=== PATIENT | male | born 1945 | race Caucasian/White ===

== ENCOUNTER 2017-11-02 13:58 | Emergency (ER) | payer MEDICARE, MEDICAID ==
[~2017-11-02] VITALS: Ht 170.2 cm; Wt 61.4 kg
[2017-11-02 14:02] VITALS: BP 128/65; PULSE 92; RESP 16; TEMP 97.4; O2SAT 97
--- NOTE | 2017-11-02 15:30 | PD ---
HPI Chief Complaint: Complaint Time Seen by Provider: 14:29 Travel History International Travel<30 days: No Contact w/Intl Traveler<30days: No Traveled to known affect area: No History of Present Illness HPI 71-year-old male complaining of pain swelling scrotum. Patient states that he had hernia repair on the left side about 5 years ago in [place]. Patient states he has increasing pain and swelling scrotum for the past 2 months. Patient denies any fever chills. Patient denies any nausea vomiting diarrhea. Patient denies any dysuria or frequency. Patient states the pain is mild cramping pain localized scrotum. Patient denies any pain radiation. On a scale of 1-10 the pain is a 3. PFSH Past Medical History Cancer: Yes Diminished Hearing: No GERD: Yes Tetanus Vaccination: Unknown Influenza Vaccination: No ?: Not Past Surgical History Abdominal Surgery: Yes (colon cancer, hernia repair) Social History Alcohol Use: Yes (daily) Tobacco Use: No Substance Use: No Allergies-Medications (Allergen,Severity, Reaction): Coded Allergies: No Known Allergies (Unverified , 11/02/17) Reported Meds & Prescriptions Reported Meds & Active Scripts Active No Active Prescriptions or Reported Medications Review of Systems General / Constitutional: No: Fever Eyes: No: Visual changes HENT: No: Headaches Cardiovascular: No: Chest Pain or Discomfort Respiratory: No: Shortness of Breath Gastrointestinal: No: Abdominal Pain Genitourinary: No: Dysuria Musculoskeletal: No: Pain Skin: No Rash Neurologic: No: Weakness Psychiatric: No: Depression Endocrine: No: Polydipsia Hematologic/Lymphatic: No: Easy Bruising Physical Exam Narrative GENERAL: Well-nourished, well-developed patient. SKIN: Focused skin assessment warm/dry. HEAD: Normocephalic. EYES: No scleral icterus. No injection or drainage. NECK: Supple, trachea midline. No JVD or lymphadenopathy. CARDIOVASCULAR: Regular rate and rhythm without murmurs, gallops, or rubs. RESPIRATORY: Breath sounds equal bilaterally. No accessory muscle use. GASTROINTESTINAL: Abdomen soft, non-tender, nondistended. MUSCULOSKELETAL: No cyanosis, or edema. BACK: Nontender without obvious deformity. No CVA tenderness. exam: Patient has enlarged scrotum bilaterally. Minimal tenderness on palpation. No redness no heat noted. The mass can be reducible. Data Data Last Documented VS Vital Signs Date Time Temp Pulse Resp B/P (MAP) Pulse Ox O2 Delivery O2 Flow Rate FiO2 11/02/17 14:02 97.4 92 16 128/65 (86) 97 Orders Orders Us Testicles W Doppler (11/02/17 14:36) MDM Medical Decision Making Medical Screen Exam Complete: Yes Emergency Medical Condition: Yes Interpretation(s) Scrotum ultrasound shows bilateral hydroceles. Differential Diagnosis Differential diagnosis including inguinal hernia, hydrocele, testicular mass, torsion. Narrative Course 71-year-old male with scrotal mass, soft, not tenderness and palpation. Typical of inguinal hernia. Diagnosis Primary Impression: Bilateral hydrocele Patient Instructions: General Instructions Additional Instructions: Advil Tylenol for pain. Follow up with urologist. Scripts No Active Prescriptions or Reported Meds Disposition: 01 DISCHARGE HOME Condition: Stable Yoel Saleh MD Nov 02, 2017 15:30
--- NOTE | 2017-11-02 15:51 | RADRPT ---
EXAM DATE/TIME: 11/02/2017 15:22 [facility] COMPARISON: No previous studies available for comparison. INDICATIONS : Testicle pain and swelling for 2 months. MEDICAL HISTORY : Gastroesophageal reflux disease. Colon cancer. SURGICAL HISTORY : Hernia repair. ENCOUNTER: Initial ACUITY: 2 months PAIN SCORE: 2/10 LOCATION: Bilateral scrotum. MEASUREMENTS: RIGHT TESTICLE: 4.2 x 2.0 x 2.3cm LEFT TESTICLE: 4.6 x 2.5 x 2.1 cm FINDINGS: RIGHT TESTICLE: Homogeneous echotexture without intra or extratesticular mass. Blood flow is symmetric and within no rmal limits. No varicocele. Small hydrocele with septations. Epididymis is within normal limits. LEFT TESTICLE: Homogeneous echotexture without intra or extratesticular mass. Blood flow is symmetric and within no rmal limits. No varicocele. Large simple appearing hydrocele. Small cyst in the epididymal head SCROTUM: Bilateral hydroceles, as above. Otherwise, unremarkable. CONCLUSION: 1. Normal symmetric sonographic appearance of the testicles with intact vascularity at this time. 2. Large simple left hydrocele. 3. Small slightly complex right hydrocele containing septations. 4. Small left epididymal cyst. Collin Watson MD on November 02, 2017 at 15:46 Board Certified Radiologist. This report was verified electronically.
== END 2017-11-02 16:10 | disposition home or self-care (01) ==
LOC: PHED 13:58
DX: N43.3 Hydrocele, unspecified (principal); Z85.038 Personal history of other malignant neoplasm of large intestine
CPT/HCPCS: 76870; 93975; 99284

== ENCOUNTER 2018-02-12 09:22 | Observation (INO) | payer MEDICARE, MEDICAID ==
[~2018-02-12] VITALS: Ht 170.2 cm; Wt 60.4 kg
[2018-02-12] VITALS (11 sets, daily range): BP systolic 135–150; BP diastolic 80–84; PULSE 75–89; RESP 16–20; TEMP 97–98.1; O2SAT 94–98
--- NOTE | 2018-02-12 09:53 | RADRPT ---
EXAM DATE/TIME: 02/12/2018 09:37 [facility] COMPARISON: No previous studies available for comparison. INDICATIONS : Chest pain for 2 days MEDICAL HISTORY : None. SURGICAL HISTORY : None. ENCOUNTER: Initial ACUITY: 2 days PAIN SCORE: 8/10 LOCATION: Bilateral chest FINDINGS: Portable AP view of the chest demonstrates a normal-sized cardiac silhouette. No effusion, consolidat ion, or pneumothorax is visualized. The bones and soft tissues demonstrate no acute abnormality. EKG lines overlie the patient. CONCLUSION: No acute cardiopulmonary abnormality is identified. Brad Pastrana MD on February 12, 2018 at 9:50 Board Certified Radiologist. This report was verified electronically.
[2018-02-12 09:59] LABS: AUTOMATED NEUTROPHIL # 2.5 TH/MM3 (1.8-7.7); BASOPHIL % 0.7 % (0.0-2.0); EOSINOPHIL # 0.1 TH/MM3 (0-0.4); EOSINOPHIL % 2.5 % (0.0-4.0); HEMATOCRIT 39.5 % (39.0-51.0); HEMOGLOBIN 13.2 GM/DL (13.0-17.0); LYMPH % 44.1 % (9.0-44.0); LYMPHOCYTE # 2.6 TH/MM3 (1.0-4.8); MEAN CELL VOLUME 101.8 FL (80.0-100.0); MEAN CORPUSCULAR HGB CONC 33.4 % (32.0-36.0); MEAN PLATELET VOLUME 8.4 FL (7.0-11.0); MONO % 10.3 % (0.0-8.0); MONOCYTE # 0.6 TH/MM3 (0-0.9); NEUT % 42.4 % (16.0-70.0); PLATELET COUNT 114 TH/MM3 (150-450); RED BLOOD COUNT 3.88 MIL/MM3 (4.50-5.90); RED CELL DISTRIBUTION WIDTH 12.9 % (11.6-17.2); WHITE BLOOD COUNT 5.8 TH/MM3 (4.0-11.0)
[2018-02-12 10:00] LABS: CHLORIDE 105 MEQ/L (98-107); SODIUM (NA) 139 MEQ/L (136-145)
[2018-02-12 10:03] LABS: CALCIUM 8.5 MG/DL (8.5-10.1); GLUCOSE,RANDOM 178 MG/DL (74-106)
[2018-02-12 10:04] LABS: BICARBONATE 27.5 MEQ/L (21.0-32.0); BLOOD UREA NITROGEN 11 MG/DL (7-18)
[2018-02-12 10:07] LABS: CREATININE 0.82 MG/DL (0.60-1.30); GLOMERULAR FILTRATION RATE 92 ML/MIN (>89)
[2018-02-12 10:11] LABS: TROPONIN I LESS THAN 0.02 NG/ML (0.02-0.05)
[2018-02-12 10:16] LABS: ALBUMIN 3.9 GM/DL (3.4-5.0)
[2018-02-12 10:19] LABS: DIRECT BILIRUBIN ADULT 0.2 MG/DL (0.0-0.2)
[2018-02-12 10:21] LABS: INDIRECT BILIRUBIN 0.5 MG/DL (0.0-0.8); TOTAL BILIRUBIN ADULT 0.7 MG/DL (0.2-1.0); TOTAL PROTEIN 8.2 GM/DL (6.4-8.2)
--- NOTE | 2018-02-12 10:32 | PD ---
HPI Chief Complaint: Chest Pain Time Seen by Provider: 09:35 Travel History International Travel<30 days: No Contact w/Intl Traveler<30days: No Traveled to known affect area: No History of Present Illness HPI 72-year-old male arrives with a complaint of chest pain. He had a fall 2 weeks prior. He had mild pain however became much worse yesterday and even worse this morning. There is a pleuritic component to the pain. No fever or cough. There is no dyspnea on exertion. Patient has no history diabetes hypertension or hyperlipidemia. No history smoking. The patient does report drinking alcohol daily. PFSH Past Medical History Cancer: Yes (colon) High Cholesterol: Yes Diminished Hearing: No GERD: Yes Influenza Vaccination: No ?: Not Past Surgical History Abdominal Surgery: Yes (colon resection, hernia repair) Social History Alcohol Use: Yes (daily) Tobacco Use: No Substance Use: No Allergies-Medications (Allergen,Severity, Reaction): Coded Allergies: No Known Allergies (Unverified , 11/02/17) Reported Meds & Prescriptions Reported Meds & Active Scripts Active No Active Prescriptions or Reported Medications Review of Systems Except as stated in HPI: all other systems reviewed are Neg General / Constitutional: No: Fever Physical Exam Narrative GENERAL: 72-year-old male well-nourished well-developed no acute distress Vital Signs Date Time Temp Pulse Resp B/P (MAP) Pulse Ox O2 Delivery O2 Flow Rate FiO2 02/12/18 10:02 96 Room Air 02/12/18 10:02 96 Room Air 02/12/18 09:57 Room Air 02/12/18 09:51 97.8 80 16 140/82 (101) 96 SKIN: Warm and dry. HEAD: Atraumatic. Normocephalic. EYES: Pupils equal and round. No scleral icterus. No injection or drainage. ENT: No nasal bleeding or discharge. Mucous membranes pink and moist. NECK: Trachea midline. No JVD. CARDIOVASCULAR: Regular rate and rhythm. RESPIRATORY: No accessory muscle use. Clear to auscultation. Breath sounds equal bilaterally. GASTROINTESTINAL: Abdomen soft, non-tender, nondistended. Hepatic and splenic margins not palpable. MUSCULOSKELETAL: Extremities without clubbing, cyanosis, or edema. No obvious deformities. NEUROLOGICAL: Awake and alert. No obvious cranial nerve deficits. Motor grossly within normal limits. Five out of 5 muscle strength in the arms and legs. Normal speech. PSYCHIATRIC: Appropriate mood and affect; insight and judgment normal. Data Data Last Documented VS Vital Signs Date Time Temp Pulse Resp B/P (MAP) Pulse Ox O2 Delivery O2 Flow Rate FiO2 02/12/18 10:02 96 Room Air 02/12/18 09:51 97.8 80 16 140/82 (101) Orders Orders Electrocardiogram (02/12/18 09:27) Complete Blood Count With Diff (02/12/18 09:27) Basic Metabolic Panel (Bmp) (02/12/18 09:27) Ckmb (Isoenzyme) Profile (02/12/18 09:27) Troponin I (02/12/18:27) Chest, Single Ap (02/12/18:27) Iv Access Insert/Monitor (02/12/18 09:27) Ecg Monitoring (02/12/18 09:27) Oxygen Administration (02/12/18:27) Oximetry (02/12/18 09:27) Hepatic Functional Panel (02/12/18 09:35) Lipase (02/12/18 09:35) CKMB (02/12/18 09:40) CKMB% (02/12/18 09:40) Admit Order (Ed Use Only) (02/12/18 ) Cotton Agent / Telemetry FANNIE.Q8H (02/12/18 10:54) Vital Signs (Adult) Q4H (02/12/18 10:54) Diet Npo (02/12/18 Lunch) Activity Bed Rest (02/12/18 10:54) Notify Dr: Other (02/12/18 10:54) Labs Laboratory Tests Test 02/12/18 09:40 White Blood Count 5.8 TH/MM3 Red Blood Count 3.88 MIL/MM3 Hemoglobin 13.2 GM/DL Hematocrit 39.5 % Mean Corpuscular Volume 101.8 FL Mean Corpuscular Hemoglobin 34.0 PG Mean Corpuscular Hemoglobin Concent 33.4 % Red Cell Distribution Width 12.9 % Platelet Count 114 TH/MM3 Mean Platelet Volume 8.4 FL Neutrophils (%) (Auto) 42.4 % Lymphocytes (%) (Auto) 44.1 % Monocytes (%) (Auto) 10.3 % Eosinophils (%) (Auto) 2.5 % Basophils (%) (Auto) 0.7 % Neutrophils # (Auto) 2.5 TH/MM3 Lymphocytes # (Auto) 2.6 TH/MM3 Monocytes # (Auto) 0.6 TH/MM3 Eosinophils # (Auto) 0.1 TH/MM3 Basophils # (Auto) 0.0 TH/MM3 CBC Comment DIFF FINAL Differential Comment Blood Urea Nitrogen 11 MG/DL Creatinine 0.82 MG/DL Random Glucose 178 MG/DL Calcium Level 8.5 MG/DL Sodium Level 139 MEQ/L Potassium Level 3.4 MEQ/L Chloride Level 105 MEQ/L Carbon Dioxide Level 27.5 MEQ/L Anion Gap 7 MEQ/L Estimat Glomerular Filtration Rate 92 ML/MIN Total Bilirubin 0.7 MG/DL Direct Bilirubin 0.2 MG/DL Indirect Bilirubin 0.5 MG/DL Aspartate Amino Transf (AST/SGOT) 41 U/L Alanine Aminotransferase (ALT/SGPT) 25 U/L Alkaline Phosphatase 96 U/L Total Creatine Kinase 143 U/L Creatine Kinase MB 1.2 NG/ML Troponin I LESS THAN 0.02 NG/ML Total Protein 8.2 GM/DL Albumin 3.9 GM/DL Lipase 160 U/L [facility] [place] Medical Decision Making Medical Screen Exam Complete: Yes Emergency Medical Condition: Yes Medical Record Reviewed: Yes Differential Diagnosis NSTEMI, unstable angina, coronary vasospasm, PE, PTX, aortic dissection, pericarditis, myocarditis, endocarditis, PNA, esophageal disease, aneurysm, musculoskeletal etiologies, anxiety, cocaine/sympathomimetic abuse Narrative Course CBC & BMP Diagram 02/12/18 09:40 Calcium Level 8.5 LFTs are normal Lipase normal Troponin less than 0.02 EKG shows a sinus rhythm with a rate of 82 and ischemic injury pattern Last Impressions Chest X-Ray 02/12/18926 Signed Impressions: Service Date/Time: Monday, February 12, 2018 09:37 - CONCLUSION: No acute cardiopulmonary abnormality is identified. Brad Pastrana MD Case d/w Dr Urban for [facility] admission Diagnosis Primary Impression: Chest pain Qualified Codes: R07.9 - Chest pain, unspecified Admitting Information Admitting Physician Requests: Observation Scripts No Active Prescriptions or Reported Meds Oswaldo Dang MD February 12, 2018 10:32
[2018-02-12] MEDS ORDERED: ONDANSETRON HCL 4 MG/2 ML VIAL IV PUSH PRN (11:15)
[2018-02-12] MEDS ORDERED: ACETAMINOPHEN 500 MG CPLT PO PRN (11:15)
[2018-02-12] MEDS ORDERED: NITROGLYCERIN 0.4 MG SL 25 TABS/BTL SL PRN (11:15)
[2018-02-12] MEDS ORDERED: SODIUM CHLORIDE 0.9% FLUSH 10 ML FLUSH IV FLUSH PRN (11:15)
--- NOTE | 2018-02-12 12:05 | EKG ---
Date Performed: 02/12/2018 Time Performed: 09:33:08 PTAGE: 72 years EKG: Sinus rhythm POSSIBLE LEFT ATRIAL ENLARGEMENT NONSPECIFIC T-WAVE ABNORMALITY BORDERLINE ECG NO PREVIOUS TRACING DOCTOR: Delroy Farr Interpretating Date/Time 02/12/2018 12:03:34
[2018-02-12 14:13] LABS: TROPONIN I LESS THAN 0.02 NG/ML (0.02-0.05)
--- NOTE | 2018-02-12 14:22 | HHI.HP ---
HPI Service [facility] Primary Care Physician Unknown Admission Diagnosis Chest Pain Diagnoses: (1) Chest pain Chief Complaint: Chest pain Travel History International Travel<30 Days: No Contact w/Intl Traveler <30 Da: No Traveled to Known Affected Are: No History of Present Illness This is a pleasant 72-year-old male patient with a known medical history of hyperlipidemia and colon cancer with resection who presented to the ED with complaints of chest pain. Patient is Hebrew-speaking, sinus and bedside assisting with translating. Supposedly 2 days ago patient woke up with left- sided chest discomfort, characterized as aching in nature, denied any radiation of pain, admits that the pain worsened with deep breathing, denies any known alleviating factors, states the pain just improved when he presented to the ED. Patient denies any associated nausea, vomiting, diaphoresis or shortness of breath. Patient denies any recent illness including fever, chills, cough, abdominal pain, nausea, vomiting, diarrhea dysuria. Patient denies any prior stress testing. Has follow-up with his PCP, has got EKGs in the past which were reportedly negative. Denies ever having this type of pain before. Upon presentation chest x-ray is negative. Denies any recent changes to medicines. Review of Systems Constitutional: DENIES: Fever, Chills Eyes: DENIES: Blurred vision, Diplopia Respiratory: DENIES: Cough, Shortness of breath Cardiovascular: COMPLAINS OF: Chest pain, DENIES: Palpitations Gastrointestinal: DENIES: Abdominal pain, Black stools, Bloody stools, Constipation, Diarrhea, Nausea, Vomiting Hematologic/lymphatic: DENIES: Bruising Neurologic: DENIES: Abnormal gait Psychiatric: DENIES: Anxiety Except as stated in HPI: all other systems reviewed are Neg Past Family Social History Past Medical History Hyperlipidemia History of colon cancer with resection GERD Past Surgical History History of colon resection 8 years ago Hernia repair Reported Medications Active No Active Prescriptions or Reported Medications Allergies: Coded Allergies: No Known Allergies (Unverified , 11/02/17) Active Ordered Medications Current Medications Medications (Trade) Dose Ordered Sig/Mari Route Start Time Stop Time Status Last Admin (NS Flush) 2 ml UNSCH PRN IV FLUSH 02/12/18 11:15 (NS Flush) 2 ml BID IV FLUSH 02/12/18 21:00 (Tylenol) 500 mg Q4H PRN PO 02/12/18 11:15 (Zofran Inj) 4 mg Q6H PRN IV PUSH 02/12/18 11:15 (Nitrostat Sl) 0.4 mg Q5M PRN SL 02/12/18 11:15 Family History Denies any known significant family medical history. Social History Denies any tobacco abuse, admits to social alcohol use, denies any illicit drug use. Physical Exam Vital Signs Vital Signs Date Time Temp Pulse Resp B/P (MAP) Pulse Ox O2 Delivery O2 Flow Rate FiO2 02/12/18 12:58 94 21 02/12/18 12:09 75 02/12/18 12:00 97.7 89 17 150/84 (106) 97 02/12/18 11:54 02/12/18 11:00 76 16 135/84 (101) 98 Room Air 02/12/18 10:02 96 Room Air 02/12/18 10:02 96 Room Air 02/12/18 09:57 Room Air 02/12/18 09:51 97.8 80 16 140/82 (101) 96 Physical Exam GENERAL: Well-developed, well-nourished patient in [facility]. SKIN: Warm and dry. No rash. HEAD: Normocephalic. Atraumatic. EYES: Pupils equal and round. No scleral icterus. No injection or drainage. ENT: No nasal bleeding or discharge. Mucous membranes pink and moist. NECK: Supple. Trachea midline. CARDIOVASCULAR: Regular rate and rhythm. S1, S2 noted. No murmur appreciated. No chest pain to palpation RESPIRATORY: No accessory muscle use. Clear to auscultation. Breath sounds equal bilaterally. GASTROINTESTINAL: Abdomen soft, non-tender, nondistended. Normoactive bowel sounds x4. MUSCULOSKELETAL: No obvious deformities. Extremities without clubbing, cyanosis , or edema. NEUROLOGICAL: Awake and alert. No obvious cranial nerve deficits. Motor grossly within normal limits. 5/5 muscle strength in bilateral upper and lower extremities. Normal speech. PSYCHIATRIC: Appropriate mood and affect; insight and judgment normal. Laboratory Laboratory Tests Test 02/12/18 09:40 02/12/18 13:20 White Blood Count 5.8 Red Blood Count 3.88 Hemoglobin 13.2 Hematocrit 39.5 Mean Corpuscular Volume 101.8 Mean Corpuscular Hemoglobin 34.0 Mean Corpuscular Hemoglobin Concent 33.4 Red Cell Distribution Width 12.9 Platelet Count 114 Mean Platelet Volume 8.4 Neutrophils (%) (Auto) 42.4 Lymphocytes (%) (Auto) 44.1 Monocytes (%) (Auto) 10.3 Eosinophils (%) (Auto) 2.5 Basophils (%) (Auto) 0.7 Neutrophils # (Auto) 2.5 Lymphocytes # (Auto) 2.6 Monocytes # (Auto) 0.6 Eosinophils # (Auto) 0.1 Basophils # (Auto) 0.0 CBC Comment DIFF FINAL Differential Comment Blood Urea Nitrogen 11 Creatinine 0.82 Random Glucose 178 Calcium Level 8.5 Sodium Level 139 Potassium Level 3.4 Chloride Level 105 Carbon Dioxide Level 27.5 Anion Gap 7 Estimat Glomerular Filtration Rate 92 Total Bilirubin 0.7 Direct Bilirubin 0.2 Indirect Bilirubin 0.5 Aspartate Amino Transf (AST/SGOT) 41 Alanine Aminotransferase (ALT/SGPT) 25 Alkaline Phosphatase 96 Total Creatine Kinase 143 136 Creatine Kinase MB 1.2 Troponin I LESS THAN 0.02 LESS THAN 0.02 Total Protein 8.2 Albumin 3.9 Lipase 160 Result Diagram: 02/12/1840 02/12/18939 Imaging Last Impressions Chest X-Ray 02/12/18926 Signed Impressions: Service Date/Time: Monday, February 12, 2018 09:37 - CONCLUSION: No acute cardiopulmonary abnormality is identified. Brad Pastrana MD Septic Shock Reassessment Septic shock perfusion: reassessment completed Caprini VTE Risk Assessment Caprini VTE Risk Assessment: Mod/High Risk (score >= 2) Caprini Risk Assessment Model Point Value = 1 Point Value = 2 Point Value = 3 Point Value = 5 Age 41-60 Minor surgery BMI > 25 kg/m2 Swollen legs Varicose veins or History of unexplained or recurrent spontaneous Oral contraceptives or hormone replacement Sepsis (< 1 month) Serious lung disease, including pneumonia (< 1 month) Abnormal pulmonary function Acute myocardial infarction Congestive heart failure (< 1 month) History of inflammatory bowel disease Medical patient at bed rest Age 61-74 Arthroscopic surgery Major open surgery (> 45 min) Laparoscopic surgery (> 45 min) Malignancy Confined to bed (> 72 hours) Immobilizing plaster cast Central venous access Age >= 75 History of VTE Family history of VTE Factor V Leiden Prothrombin [id number] Lupus anticoagulant Anticardiolipin antibodies Elevated serum homocysteine Heparin-induced thrombocytopenia Other congenital or acquired thrombophilia Stroke (< 1 month) Elective arthroplasty Hip, pelvis, or leg fracture Acute spinal cord injury (< 1 month) Prophylaxis Regimen Total Risk Factor Score Risk Level Prophylaxis Regimen 0-1 Low Early ambulation 2 Moderate Order ONE of the following: *Sequential Compression Device (SCD) *Heparin 5000 units SQ BID 3-4 Higher Order ONE of the following medications: *Heparin 5000 units SQ TID *Enoxaparin/Lovenox 40 mg SQ daily (WT < 150 kg, CrCl > 30 mL/min) *Enoxaparin/Lovenox 30 mg SQ daily (WT < 150 kg, CrCl > 10-29 mL/min) *Enoxaparin/Lovenox 30 mg SQ BID (WT < 150 kg, CrCl > 30 mL/min) AND/OR *Sequential Compression Device (SCD) 5 or more Highest Order ONE of the following medications: *Heparin 5000 units SQ TID (Preferred with Epidurals) *Enoxaparin/Lovenox 40 mg SQ daily (WT < 150 kg, CrCl > 30 mL/min) *Enoxaparin/Lovenox 30 mg SQ daily (WT < 150 kg, CrCl > 10-29 mL/min) *Enoxaparin/Lovenox 30 mg SQ BID (WT < 150 kg, CrCl > 30 mL/min) AND *Sequential Compression Device (SCD) Assessment and Plan Problem List: (1) Chest pain ICD Code: R07.9 - Chest pain, unspecified Status: Acute Plan: Patient has been admitted to the chest pain center for observation. Serial EKGs and serial troponins have been ordered for ruling out ACS purposes. Initial 2 troponins flat. Follow trends. EKG reviewed showing normal sinus rhythm with controlled heart rate, no ST changes to indicate ischemia. Chest pain has now resolved. Was given 1 dose of Toradol. Nitroglycerin as needed for chest pain. CBC reviewed, MCV high as well as mild thrombocytopenia, patient does admit to drinking frequently. Liver enzymes within normal limits. Encouraged alcohol cessation. BMP essentially unremarkable. Lipid panel pending. Patient will undergo Lexiscan to further rule out any ischemia. Patient is stable at this time and agreeable to the plan. Further hospitalization treatment plan will depend on nuclear imaging results. Problem Qualifiers (1) Chest pain: Qualified Codes: R07.9 - Chest pain, unspecified Apurva Fernandez February 12, 2018 14:22
[2018-02-12] MEDS ORDERED: KETOROLAC TROMETHAMINE 30 MG/ML (IVP) VIAL IV PUSH ONE (14:30)
--- NOTE | 2018-02-12 16:59 | HHI.DCPOC ---
Discharge Care Plan Diagnosis: (1) Chest pain Goals to Promote Your Health * To prevent worsening of your condition and complications * To maintain your health at the optimal level Directions to Meet Your Goals Take your medications as prescribed Follow your dietary instruction Follow activity as directed Keep your appointments as scheduled Take your immunizations and boosters as scheduled If your symptoms worsen call your PCP, if no PCP go to Urgent Care Center or Emergency Room Smoking is Dangerous to Your Health. Avoid second hand smoke Call the 24-hour hour crisis hotline for domestic abuse at Apurva Fernandez February 12, 2018 16:59
[2018-02-12 17:05] LABS: TROPONIN I LESS THAN 0.02 NG/ML (0.02-0.05)
[2018-02-12] MEDS ORDERED: POTASSIUM CHLORIDE 20 MEQ CONTROLLED RELEASE TAB PO ONE (17:30)
[2018-02-12] MEDS: SODIUM CHLORIDE 0.9% FLUSH 10 ML FLUSH IV FLUSH SCH (21:00)
[2018-02-12 23:48] LABS: CHOLESTEROL 169 MG/DL (120-200); TRIGLYCERIDES 142 MG/DL (42-150)
[2018-02-12 23:51] LABS: CHOLESTEROL/ HDL RATIO 1.99 RATIO; HDL CHOLESTEROL 84.6 MG/DL (40.0-60.0); LDL CHOLESTEROL 56 MG/DL (0-99)
[2018-02-13 01:56] VITALS: BP 159/89; PULSE 95; RESP 20; TEMP 97.9; O2SAT 97
[2018-02-13 04:56] VITALS: BP 158/90; PULSE 97; RESP 20; TEMP 98.3; O2SAT 95
[2018-02-13 08:00] VITALS: BP 154/84; PULSE 88; PULSE 90; RESP 18; TEMP 99.4; O2SAT 96
[2018-02-13] MEDS ORDERED: REGADENOSON INJ 0.4 MG/5 ML SYR IV ONE (08:50)
[2018-02-13] MEDS: SODIUM CHLORIDE 0.9% FLUSH 10 ML FLUSH IV FLUSH SCH (09:00)
[2018-02-13] MEDS ORDERED: ASPIRIN 81 MG CHEW TAB CHEW SCH (09:00)
--- NOTE | 2018-02-13 09:48 | RADRPT ---
EXAM DATE/TIME: 02/12/2018 17:12 [facility] COMPARISON: No previous studies available for comparison. INDICATIONS : Left sided chest pain with dyspnea. Angina. DOSE: 30.1 mCi Tc99m Myoview at stress. 30.0 mCi Tc99m Myoview at rest. 0.4 mg Lexiscan STRESS SYMPTOMS: Short of breath. EJECTION FRACTION: > 70% MEDICAL HISTORY : Gastroesophageal reflux disease. Carcinoma, colon. SURGICAL HISTORY : Colon resection. ENCOUNTER: Initial ACUITY: 2 days PAIN SCALE: 6/10 LOCATION: Left chest TECHNIQUE: The patient underwent pharmacologic stress with infusion of prescribed dose. Continuous ECG tracing was monitored during stress. Gated SPECT imaging was performed after stress and conventional SPECT i maging was performed at rest. The examination was performed on a SPECT/CT scanner, both attenuation and non-corrected datasets were reviewed. FINDINGS: DISTRIBUTION: The maximum perfused segment at stress is in the septal wall. PERFUSION STUDY: The pattern of perfusion at stress is within normal limits. GATED STUDY: There is intact wall motion and thickening without hypokinetic or dyskinetic segments. CONCLUSION: Normal examination. RISK CATEGORY: Low (<1% Annual Mortality Rate) Brad Carmona MD on February 13, 2018 at 9:40 Board Certified Radiologist. This report was verified electronically.
[2018-02-13 10:14] VITALS: O2SAT 96
--- NOTE | 2018-02-13 10:31 | HHI.PR ---
Subjective Remarks Follow up chest pain. Patient seen and examined, nuclear scan completed. Negative. No further chest pain. No further symptoms. Patient is lying in bed comfortably in no apparent distress. Doing well and will be discharged home to follow up with PCP. Labs stable. Spoke with family member and updated on patient status. Objective Vitals Vital Signs Date Time Temp Pulse Resp B/P (MAP) Pulse Ox O2 Delivery O2 Flow Rate FiO2 02/13/18 10:14 96 21 02/13/18 08:00 99.4 90 18 154/84 (107) 96 02/13/18 04:56 98.3 97 20 158/90 (112) 95 02/13/18 01:56 97.9 95 20 159/89 (112) 97 02/12/18 23:00 81 02/12/18 22:39 98.1 84 20 143/84 (103) 95 02/12/18 22:00 94 21 02/12/18 16:00 97.0 88 17 146/80 (102) 98 02/12/18 15:00 78 02/12/18 12:58 94 21 02/12/18 12:09 75 02/12/18 12:00 97.7 89 17 150/84 (106) 97 02/12/18 11:54 02/12/18 11:00 76 16 135/84 (101) 98 Room Air Result Diagram: 02/12/18 0940 02/12/18 0940 Imaging Last Impressions Chest X-Ray 02/12/18 0927 Signed Impressions: Service Date/Time: Monday, February 12, 2018 09:37 - CONCLUSION: No acute cardiopulmonary abnormality is identified. Brad Pastrana MD Myocardial Perfusion Scan Nuc Med 02/12/18 0000 Signed Impressions: Service Date/Time: Monday, February 12, 2018 17:12 - CONCLUSION: Normal examination. RISK CATEGORY: Low (<1%% Annual Mortality Rate) Brad Carmona MD Objective Remarks GENERAL: Well-developed, well-nourished patient in [facility]. SKIN: Warm and dry. No rash. HEAD: Normocephalic. Atraumatic. EYES: Pupils equal and round. No scleral icterus. No injection or drainage. ENT: No nasal bleeding or discharge. Mucous membranes pink and moist. NECK: Supple. Trachea midline. CARDIOVASCULAR: Regular rate and rhythm. S1, S2 noted. No murmur appreciated. No chest pain to palpation RESPIRATORY: No accessory muscle use. Clear to auscultation. Breath sounds equal bilaterally. GASTROINTESTINAL: Abdomen soft, non-tender, nondistended. Normoactive bowel sounds x4. MUSCULOSKELETAL: No obvious deformities. Extremities without clubbing, cyanosis , or edema. NEUROLOGICAL: Awake and alert. No obvious cranial nerve deficits. Motor grossly within normal limits. 5/5 muscle strength in bilateral upper and lower extremities. Normal speech. PSYCHIATRIC: Appropriate mood and affect; insight and judgment normal. A/P Problem List: (1) Chest pain ICD Code: R07.9 - Chest pain, unspecified Status: Acute Plan: Patient has been admitted to the chest pain center for observation. Serial EKGs and serial troponins have been ordered for ruling out ACS purposes. Troponins flat. EKG reviewed showing normal sinus rhythm with controlled heart rate, no ST changes to indicate ischemia. Chest pain has now resolved. Was given 1 dose of Toradol. Nitroglycerin as needed for chest pain. CBC reviewed , MCV high as well as mild thrombocytopenia, patient does admit to drinking frequently. Liver enzymes within normal limits. Encouraged alcohol cessation. BMP essentially unremarkable. Lipid panel reviewed and WNL. Patient underwent a Lexiscan to further rule out any ischemia. EF > 70%. No ischemia. Patient will be discharged home today to follow-up with PCP. If chest pain worsens or continues patient advised to come to back to the ED. Patient is stable at this time and agreeable to the plan. Problem Qualifiers (1) Chest pain: Qualified Codes: R07.9 - Chest pain, unspecified Apurva Fernandez February 13, 2018 10:31
[2018-02-13] MEDS ORDERED: ASPI81 CHEW (11:03)
--- NOTE | 2018-02-13 16:16 | EKG ---
Date Performed: 02/12/2018 Time Performed: 13:13:34 PTAGE: 72 years EKG: Sinus rhythm POSSIBLE LEFT ATRIAL ENLARGEMENT BORDERLINE ECG PREVIOUS TRACING : 02/12/2018 09.33 Since previous tracing, no significant change noted DOCTOR: Bryon Ceballos Interpretating Date/Time 02/13/2018 16:14:31
--- NOTE | 2018-02-13 16:17 | EKG ---
Date Performed: 02/12/2018 Time Performed: 15:48:02 PTAGE: 72 years EKG: Sinus rhythm NORMAL ECG PREVIOUS TRACING : 02/12/2018 13.13 Since previous tracing, no significant change noted DOCTOR: Bryon Ceballos Interpretating Date/Time 02/13/2018 16:15:35
--- NOTE | 2018-02-13 16:23 | TR ---
Date Performed: 02/13/2018 Time Performed: 08:39:12 DOCTOR: Bryon Ceballos DRUG LIST: CLINICAL HISTORY: CHEST PAIN REASON FOR TEST: Angina REASON FOR ENDING: OBSERVATION: CONCLUSION: COMMENTS: Lexiscan stress test was performed under standard four minute protocol. Radionuclide was injected one minute prior to ending the test. No electrocardiographic abormalities were present t o suggest ischemia. Nuclear imaging and interpretation are pending.
[2018-02-13 16:33] LABS: HEMOGLOBIN A1C 5.2 % (4.3-6.0)
== END 2018-02-13 12:35 | disposition home or self-care (01) ==
LOC: PHED 09:22 → PHEDA 10:57 → PH3A 11:40
PROVIDERS: ADMIT Hospitalist; ATTEND Hospitalist
DX: R07.9 Chest pain, unspecified (principal); I10 Essential (primary) hypertension; R94.31 Abnormal electrocardiogram [ECG] [EKG]; D69.6 Thrombocytopenia, unspecified; E78.5 Hyperlipidemia, unspecified; E78.00 Pure hypercholesterolemia, unspecified; K21.9 Gastro-esophageal reflux disease without esophagitis; Z85.038 Personal history of other malignant neoplasm of large intestine; Z90.49 Acquired absence of other specified parts of digestive tract; Z91.81 History of falling
CPT/HCPCS: 71045; 78452; 80048; 80061; 80076; 82550; 82552; 83036; 83690; 84484; 85025; 93005; 93017; 96374; 96376; 99285; A9502; G0378; J1885; J2785